=== PATIENT | male | born 1955 | race Caucasian/White ===

== ENCOUNTER → 2017-03-10 | Outpatient (REF) ==
[~2017-03-10] MED LIST: AMITRIPTYLINE H50 M1 PO; ATIVAN2 MG PO; CLEOCIN HC150 MG/CAP PO; CORGARD20 MG PO; DIFLUCAN 100MG100 MG PO; FENTANYL 50MCG TOP; JANUVIA25 MG PO; LAMICTAL200 MG PO; LANTUS100 U/ML SC; LANTUS100 U/ML SQ; NEURONTIN300 MG/CAP PO; NORCO 325 MG-101 TAB PO; NORCO 325 MG-51 TAB PO; NOVLOG; NOVOLOG FLEX100 U/ML SQ; PERCOCET 325 MG1 TAB PO; UNABLE; ZOCOR 40MG40 MG PO
[2017-03-10 15:47] LABS: THYROID STIMULATING HORMONE 1.27 uIU/mL (0.465-4.680)
[2017-03-10 17:26] LABS: PSA-TOTAL 0.28 ng/mL (0-4)
== END ==
LOC: ZLAB.WCH 14:52
PROVIDERS: Internal Medicine
DX: Z01.89 Encounter for other specified special examinations (principal)
CPT/HCPCS: G0103

== ENCOUNTER → 2017-04-08 | Outpatient (CLI) | payer MEDICARE | LOC: BHSO 10:26 | DX: F33.1 Major depressive disorder, recurrent, moderate (principal) ==

== ENCOUNTER 2017-05-02 12:54 | Day surgery (SDC) | payer MEDICARE ==
[~2017-05-02] VITALS: Ht 180.3 cm; Wt 109.8 kg
[~2017-05-02 12:54] MED LIST changes: -AMITRIPTYLINE H50 M1 PO; -ATIVAN2 MG PO; -LAMICTAL200 MG PO; -LANTUS100 U/ML SQ; -NEURONTIN300 MG/CAP PO; -NOVOLOG FLEX100 U/ML SQ; -ZOCOR 40MG40 MG PO
[2017-05-02 13:59] VITALS: BP 119/77; PULSE 98; TEMP 99
[2017-05-02] MEDS ORDERED: AMITRIPTYLINE H50 M1 PO (14:02)
[2017-05-02] MEDS ORDERED: ATIVAN2 MG PO (14:04)
[2017-05-02] MEDS ORDERED: LAMICTAL200 MG PO (14:05)
[2017-05-02] MEDS ORDERED: LANTUS100 U/ML SQ (14:07)
[2017-05-02] MEDS ORDERED: NEURONTIN300 MG/CAP PO (14:08)
[2017-05-02] MEDS ORDERED: NOVOLOG FLEX100 U/ML SQ (14:09)
[2017-05-02] MEDS ORDERED: ZOCOR 40MG40 MG PO (14:10)
[2017-05-02 14:48] VITALS: BP 107/72; PULSE 80; TEMP 98
[2017-05-02 15:00] VITALS: BP 99/65; PULSE 75
[2017-05-02 15:15] VITALS: BP 109/71; PULSE 82
[2017-05-02 17:52] VITALS: BP 112/77; PULSE 78
== END 2017-05-02 15:45 | disposition home or self-care (01) ==
LOC: SDCO 12:54
DX: I85.00 Esophageal varices without bleeding (principal); K29.31 Chronic superficial gastritis with bleeding; K74.60 Unspecified cirrhosis of liver; E10.9 Type 1 diabetes mellitus without complications; B18.2 Chronic viral hepatitis C; K76.6 Portal hypertension; K31.89 Other diseases of stomach and duodenum; E78.00 Pure hypercholesterolemia, unspecified; F32.9 Major depressive disorder, single episode, unspecified; F41.9 Anxiety disorder, unspecified; R53.1 Weakness
CPT/HCPCS: OP; J2250; J3010

== ENCOUNTER → 2017-06-07 | Outpatient (REF) ==
[~2017-06-07] MED LIST changes: +AMITRIPTYLINE H50 M1 PO; +ATIVAN2 MG PO; +LAMICTAL200 MG PO; +LANTUS100 U/ML SQ; +NEURONTIN300 MG/CAP PO; +NOVOLOG FLEX100 U/ML SQ; +ZOCOR 40MG40 MG PO
== END ==
LOC: ZLAB.WCH 18:37
DX: Z01.89 Encounter for other specified special examinations (principal)

== ENCOUNTER → 2017-08-10 | Outpatient (CLI) | payer MEDICARE | LOC: BHSO 12:54 | DX: F31.73 Bipolar disorder, in partial remission, most recent episode manic (principal) ==

== ENCOUNTER → 2017-10-17 | Outpatient (CLI) | payer MEDICARE | LOC: BHSO 10:43 | DX: F33.1 Major depressive disorder, recurrent, moderate (principal) ==

== ENCOUNTER → 2017-10-17 | Outpatient (REF) | LOC: ZLAB.WCH 18:15 | DX: Z01.89 Encounter for other specified special examinations (principal) ==

== ENCOUNTER → 2018-01-31 | Outpatient (CLI) | payer MEDICARE | LOC: MHCPAIN 09:38 | DX: G89.29 Other chronic pain (principal); M47.817 Spondylosis without myelopathy or radiculopathy, lumbosacral region; M54.16 Radiculopathy, lumbar region; M53.3 Sacrococcygeal disorders, not elsewhere classified | CPT/HCPCS: G0463 ==

== ENCOUNTER → 2018-03-29 | Outpatient (CLI) | payer MEDICARE | LOC: BHSO 08:42 | DX: F41.1 Generalized anxiety disorder (principal) | CPT/HCPCS: G0463 ==

== ENCOUNTER 2018-04-20 10:30 | Outpatient (RCR) | payer MEDICARE ==
[2018-04-27] MEDS ORDERED: VICTOZA6 MG/ML SQ (07:24)
[2018-04-27] MEDS ORDERED: CEPHALEXIN500 M1 PO (09:38)
== END 2018-05-23 | disposition home or self-care (01) ==
LOC: WSPT
DX: M47.27 Other spondylosis with radiculopathy, lumbosacral region (principal); M53.3 Sacrococcygeal disorders, not elsewhere classified
CPT/HCPCS: G8978-GP; G8979-GP

== ENCOUNTER 2018-04-27 06:58 | Emergency (ER) | payer MEDICARE ==
[~2018-04-27] VITALS: Ht 180.3 cm; Wt 118.2 kg
[2018-04-27] MEDS ORDERED: VICTOZA6 MG/ML SQ (07:24)
[2018-04-27 07:50] LABS: EOS # 0.1 (0.0-0.7); EOS % 0.9 % (0-4.0); GRAN # 2.6 (1.4-6.5); HEMATOCRIT 39.8 % (42.0-52.0); HEMOGLOBIN 14.2 g/dl (13.5-18.0); LYMPH # 2.3 (1.2-3.4); LYMPH % 42.5 % (20.0-51.0); MEAN CELL VOLUME 93 fl (80.0-100.0); MEAN CORPUSCULAR HEMOGLOBIN 33 pg (27.0-31.0); MEAN CORPUSCULAR HGB CONC 36 g/dl (33.0-37.0); MEAN PLATELET VOLUME 10.9 fl (7.4-10.4); MONO # 0.5 (0.1-0.6); MONO % 8.4 % (1.7-9.3); PLATELET COUNT 61 K/mm3 (130-400); RED BLOOD COUNT 4.29 M/mm3 (4.20-5.60); REDCELL DISTRIBUTION WIDTH-CV 13.3 % (11.5-14.5)
[2018-04-27 07:56] LABS: ALBUMIN 3.9 gm/dL (3.5-5.0); BILIRUBIN,TOTAL 0.9 mg/dL (0.0-1.0); CALCIUM 9.1 mg/dL (8.4-10.2); CREATININE, serum 0.81 mg/dL (0.66-1.25); POTASSIUM 3.5 mmol/L (3.4-5.0); TOTAL PROTEIN 7.2 gm/dL (6.4-8.2)
[2018-04-27] MEDS ORDERED: CEPHALEXIN500 M1 PO (09:38)
[2018-04-27 10:55] VITALS: BP 101/65; PULSE 92; TEMP 97.6
== END 2018-04-27 10:55 | disposition home or self-care (01) ==
LOC: COL.ER 06:58
PROVIDERS: Physician Assistant
DX: S22.41XA Multiple fractures of ribs, right side, initial encounter for closed fracture (principal); S40.811A Abrasion of right upper arm, initial encounter; L08.9 Local infection of the skin and subcutaneous tissue, unspecified; I10 Essential (primary) hypertension; E11.9 Type 2 diabetes mellitus without complications; M54.5 Low back pain; G89.29 Other chronic pain; Z79.4 Long term (current) use of insulin; F17.210 Nicotine dependence, cigarettes, uncomplicated; W18.09XA Striking against other object with subsequent fall, initial encounter
CPT/HCPCS: A9284; J2405; J3010; J7030; Q9967

== ENCOUNTER → 2018-05-05 | Outpatient (REF) ==
[~2018-05-05] MED LIST changes: +CEPHALEXIN500 M1 PO; +VICTOZA6 MG/ML SQ
== END ==
LOC: ZLAB.WCH 15:16
DX: Z01.89 Encounter for other specified special examinations (principal)

== ENCOUNTER → 2018-05-25 | Outpatient (CLI) | payer MEDICARE | LOC: BHSO 10:11 | DX: F33.42 Major depressive disorder, recurrent, in full remission (principal) | CPT/HCPCS: G0463 ==

== ENCOUNTER → 2018-09-05 | Outpatient (REF) | LOC: ZLAB.WCH 17:55 | DX: Z01.89 Encounter for other specified special examinations (principal) ==

== ENCOUNTER → 2018-09-11 | Outpatient (CLI) | payer MEDICARE | LOC: BHSO 10:44 | DX: F33.42 Major depressive disorder, recurrent, in full remission (principal) | CPT/HCPCS: G0463 ==

== ENCOUNTER 2018-09-23 16:20 | Emergency (ER) | payer MEDICARE ==
[~2018-09-23] VITALS: Ht 180.3 cm; Wt 111.8 kg
[2018-09-23 16:22] VITALS: TEMP 98.3
[2018-09-23] MEDS ORDERED: LIPITOR 40MG TA40 MG PO (16:36)
[2018-09-23] MEDS ORDERED: LEVEMIR FLEX100 U/ML SQ (16:38)
[2018-09-23] MEDS ORDERED: WELLBUTRIN XL150 MG PO (16:38)
[2018-09-23] MEDS ORDERED: CYMBALTA 60MG60 MG PO (16:39)
[2018-09-23] MEDS ORDERED: DOXYCYCLINE 10100 MG PO (17:09)
[2018-09-23 17:19] VITALS: BP 103/66; PULSE 74
== END 2018-09-23 17:37 | disposition home or self-care (01) ==
LOC: COL.ER 16:20
DX: S92.402A Displaced unspecified fracture of left great toe, initial encounter for closed fracture (principal); E11.9 Type 2 diabetes mellitus without complications; F17.210 Nicotine dependence, cigarettes, uncomplicated; E11.40 Type 2 diabetes mellitus with diabetic neuropathy, unspecified; Z79.4 Long term (current) use of insulin; W22.8XXA Striking against or struck by other objects, initial encounter; Y92.009 Unspecified place in unspecified non-institutional (private) residence as the place of occurrence of the external cause

== ENCOUNTER → 2018-12-20 | Outpatient (REF) ==
[~2018-12-20] MED LIST changes: +CYMBALTA 60MG60 MG PO; +DOXYCYCLINE 10100 MG PO; +LEVEMIR FLEX100 U/ML SQ; +LIPITOR 40MG TA40 MG PO; +WELLBUTRIN XL150 MG PO
== END ==
LOC: ZLAB.WCH 09:13
DX: Z01.89 Encounter for other specified special examinations (principal)

== ENCOUNTER → 2019-02-12 | Outpatient (CLI) | payer MEDICARE | LOC: MHCPAIN 10:48 | DX: G89.29 Other chronic pain (principal); M47.817 Spondylosis without myelopathy or radiculopathy, lumbosacral region; M54.16 Radiculopathy, lumbar region; M53.3 Sacrococcygeal disorders, not elsewhere classified | CPT/HCPCS: G0463 ==

== ENCOUNTER → 2019-02-22 | Outpatient (CLI) | payer MEDICARE | LOC: BHSO 09:28 | DX: F41.1 Generalized anxiety disorder (principal) | CPT/HCPCS: G0463 ==

== ENCOUNTER 2019-03-11 17:11 | Inpatient (IN) | payer MEDICARE ==
[~2019-03-11] VITALS: Ht 180.3 cm; Wt 97.1 kg
[2019-03-11 18:14] LABS: BASO % 0.2 % (0.0-2.0); EOS % 0.2 % (0-4.0); GRAN # 3.8 (1.4-6.5); GRAN % 71.9 % (42.2-75.2); HEMATOCRIT 47.1 % (42.0-52.0); LYMPH # 1.2 (1.2-3.4); MEAN CELL VOLUME 95 fl (80.0-100.0); MEAN CORPUSCULAR HEMOGLOBIN 32 pg (27.0-31.0); MEAN CORPUSCULAR HGB CONC 34 g/dl (33.0-37.0); MEAN PLATELET VOLUME 11.2 fl (7.4-10.4); MONO # 0.3 (0.1-0.6); MONO % 5.3 % (1.7-9.3); PLATELET COUNT 56 K/mm3 (130-400); RED BLOOD COUNT 4.97 M/mm3 (4.20-5.60)
[2019-03-11] MEDS ORDERED: NORCO 325 MG-7.1 TAB PO (18:28)
[2019-03-11] MEDS ORDERED: ATIVAN2 MG PO (18:29)
[2019-03-11] MEDS ORDERED: FENTANYL 25 MCG TD (18:29)
[2019-03-11 18:34] LABS: ALBUMIN 4.8 gm/dL (3.5-5.0); BILIRUBIN,TOTAL 0.8 mg/dL (0.0-1.0); C-REACTIVE PROTEIN 0.7 mg/dL (0.0-0.9); CALCIUM 10.3 mg/dL (8.4-10.2); CREATININE, serum 0.67 (0.66-1.25); POTASSIUM 4.4 mmol/L (3.4-5.0); TOTAL PROTEIN 8.4 gm/dL (6.4-8.2)
[2019-03-11 20:24] LABS: COLLECTION METHOD CLEAN CATCH
[2019-03-11 20:34] LABS: AMORPHOUS CRYSTAL Present /uL; PH 9 (5-8); SQUAMOUS EPITHELIAL 0-2 /hpf; URINE APPEARANCE Clear; URINE BACTERIA None Seen /hpf; URINE BILIRUBIN Negative (NEGATIVE); URINE BLOOD Negative (NEGATIVE); URINE COLOR Yellow; URINE GLUCOSE 1+ (NEGATIVE); URINE KETONE Negative (NEGATIVE); URINE LEUKOCYTE ESTERASE Negative (NEGATIVE); URINE NITRATE Negative (NEGATIVE); URINE PROTEIN(semi-quant) Negative (NEGATIVE); URINE RBC 0-2 /hpf; URINE UROBILINOGEN Negative (NEGATIVE)
[2019-03-11 21:16] LABS: INR 1.1 (0.8-3.0); PROTHROMBIN TIME 12.9 SECONDS (9.7-12.8)
[2019-03-11 23:05] VITALS: BP 137/73; PULSE 94
[2019-03-11 23:08] VITALS: BP 137/73; PULSE 94; TEMP 98.1
[2019-03-11 23:20] VITALS: BP 131/65; PULSE 91
[2019-03-11] MEDS ORDERED: VICTOZA6 MG/ML (23:28)
[2019-03-11] MEDS ORDERED: SEROQUEL 1100 MG/TAB PO (23:33)
[2019-03-11 23:35] VITALS: BP 116/74; PULSE 91
[2019-03-11 23:50] VITALS: BP 123/67; PULSE 95
[2019-03-12] VITALS (11 sets, daily range): BP systolic 71–138; BP diastolic 39–89; PULSE 72–94; TEMP 98.2–99.2
--- NOTE | 2019-03-12 03:28 | NUR ---
Patient blood pressure noted to be low (last reading 90/48 with a recheck of 84/51). Dr. Schroeder notified via phone and he stated, "Just keep an eye on it." Will continue to monitor blood pressures.
--- NOTE | 2019-03-12 05:01 | NUR ---
Dr. Torres notified of hypotension. He ordered 500ml bolus of NS, H&H, and BMP. Will continue to monitor blood pressure closely.
[2019-03-12 06:35] LABS: HEMATOCRIT 37.2 % (42.0-52.0)
[2019-03-12 06:38] LABS: HEMOGLOBIN 12.7 g/dl (13.5-18.0)
--- NOTE | 2019-03-12 06:58 | NUR ---
Report given to CRISTIANA Ro
[2019-03-12 07:01] LABS: CALCIUM 8.4 mg/dL (8.4-10.2); CREATININE, serum 0.72 (0.66-1.25); POTASSIUM 3.7 mmol/L (3.4-5.0)
--- NOTE | 2019-03-12 07:45 | NUR ---
TORB orders entered for Dr. Torres, Diet advanced, lab orders entered, hospitalist consulted and notified.
--- NOTE | 2019-03-12 08:10 | NUR ---
Patient in bed resting. Alert and oriented x 3. Shift assessment completed. States pain 8/10 to abdomen and back. Medications given per orders. Midline incision around umbilicus with edges well approximated. IV fluids infusing per orders to left AC IV. Deneis further needs at this time.
--- NOTE | 2019-03-12 11:19 | NUR ---
First visit from the agricultural labor camp manager. No needs right now.
[2019-03-12 12:25] LABS: BASO % 0.2 % (0.0-2.0); EOS % 0.5 % (0-4.0); GRAN # 3.3 (1.4-6.5); GRAN % 59.6 % (42.2-75.2); HEMATOCRIT 39.8 % (42.0-52.0); HEMOGLOBIN 13.4 g/dl (13.5-18.0); LYMPH # 1.7 (1.2-3.4); LYMPH % 31.2 % (20.0-51.0); MEAN CELL VOLUME 95 fl (80.0-100.0); MEAN CORPUSCULAR HEMOGLOBIN 32 pg (27.0-31.0); MEAN CORPUSCULAR HGB CONC 34 g/dl (33.0-37.0); MEAN PLATELET VOLUME 11.3 fl (7.4-10.4); MONO # 0.5 (0.1-0.6); MONO % 8.1 % (1.7-9.3); PLATELET COUNT 51 K/mm3 (130-400); RED BLOOD COUNT 4.21 M/mm3 (4.20-5.60); REDCELL DISTRIBUTION WIDTH-CV 14.3 % (11.5-14.5)
--- NOTE | 2019-03-12 14:51 | NUR ---
Patient called out to nurses station, states he is feeling sweaty and doesnt feel well. Rechecked bs, 164. Reassessed incision site, no redness or drainage. Will continue to monitor.
--- NOTE | 2019-03-12 16:28 | NUR ---
SW met with patient to discuss discharge planning. Patient lives independently at home alone. Patient's PCP is Dr Reinoso and he obtains prescriptions from [facility]. Patient reports no DME or home health services used. Patient does not have a DPOA but would like to complete those forms. SW provided DPOA form and will return when patient is ready to sign. No additional needs at this time.
--- NOTE | 2019-03-12 18:05 | NUR ---
Patient in bed resting. Family at bedside. Denies pain or further needs at this time. Will report off to shift mgr.
--- NOTE | 2019-03-12 20:45 | NUR ---
Pt. sitting up in bed at this time. Pt. is A&OX3, assessment complete. INT to lt. forearm patent. Pt. has midline incision to abd., edges well approximated. Pt. reports pain at a 5 on pain scale. Gave pain meds per orders. Pt. denies further needs, at this time.
[2019-03-13] VITALS (7 sets, daily range): BP systolic 109–131; BP diastolic 62–82; PULSE 69–83; TEMP 97.7–98.9
--- NOTE | 2019-03-13 06:14 | NUR ---
Pt. slept well through the night. Pt. remains A&OX3. INT to lt. forearm patent. Pt. reported pain at a 5 on pain scale, gave pain meds per orders. Pt. denies further needs, call light within reach.
[2019-03-13 07:23] LABS: BASO % 0.3 % (0.0-2.0); EOS % 0.8 % (0-4.0); GRAN # 1.7 (1.4-6.5); GRAN % 46.4 % (42.2-75.2); HEMATOCRIT 38.9 % (42.0-52.0); HEMOGLOBIN 13.1 g/dl (13.5-18.0); LYMPH # 1.6 (1.2-3.4); LYMPH % 42.9 % (20.0-51.0); MEAN CELL VOLUME 96 fl (80.0-100.0); MEAN CORPUSCULAR HEMOGLOBIN 32 pg (27.0-31.0); MEAN CORPUSCULAR HGB CONC 34 g/dl (33.0-37.0); MEAN PLATELET VOLUME 11.6 fl (7.4-10.4); MONO # 0.4 (0.1-0.6); MONO % 9.3 % (1.7-9.3); RED BLOOD COUNT 4.06 M/mm3 (4.20-5.60)
[2019-03-13 07:28] LABS: PLATELET COUNT 48 K/mm3 (130-400)
--- NOTE | 2019-03-13 07:35 | NUR ---
REPORT FROM PRACHI ZENDEJAS.
[2019-03-13 07:36] LABS: CREATININE, serum 0.75 (0.66-1.25); POTASSIUM 3.9 mmol/L (3.4-5.0)
--- NOTE | 2019-03-13 08:25 | NUR ---
PT UP IN BED BREAKFAST ORDERED PT DENIES NEEDS, NO N/V. PAIN WELL CONTROLLED.
--- NOTE | 2019-03-13 16:17 | NUR ---
PT OUT AMBULATING IN HALLS WITH SBA. STEADY GAIT, AMBULATED 100 + FEET.
--- NOTE | 2019-03-13 18:52 | NUR ---
report to Alisha ZENDEJAS.
--- NOTE | 2019-03-13 19:50 | NUR ---
Pt ambulated in halls with gait belt and cane. Gait is steady. Pt ambulated around surgical unit x2. Pt becomes dyspneic with exertion, but returns to baseline once returned to bed. Lungs clear to auscultation. BS+. Abdomen rounded, but soft. Midline abdominal incision open to air. Pt c/o pain 6/10 in abdomen after ambulation. Pt states he wants to wait until next dose of pain medication. No other needs noted at this time. Will continue to monitor.
--- NOTE | 2019-03-13 23:00 | NUR ---
Pt up to shower with help from Osvaldo TRIPLETT. Pt helped back to bed and given clean gown. Well tolerated by patient.
[2019-03-14 04:00] VITALS: BP 123/81; PULSE 76; TEMP 98.4
--- NOTE | 2019-03-14 06:39 | NUR ---
Pt resting in bed this AM. Slept periodically throughout the night with no distress and intermittent pain. Sliding scale insulin administered per orders. Pt c/o pain 6/10 in abdomen and back. PRN pain medication given. Pt is awake and alert.
[2019-03-14 08:30] VITALS: BP 97/65; PULSE 72
--- NOTE | 2019-03-14 08:40 | NUR ---
Patient in bed resting. Alert and oriented x 3. Shift assessment complete. Midline incision with edges well approximated. Denies pain at this time. Denies further needs at this time.
--- NOTE | 2019-03-14 10:15 | NUR ---
Patient states that he will not have a ride available to take him home until after 3pm. Denies further needs at this time.
[2019-03-14 12:07] VITALS: BP 125/76; PULSE 69; TEMP 98.5
--- NOTE | 2019-03-14 13:00 | NUR ---
Patient ambulated in alonso with stand by assist and cane, steady gait. Ambulated >100 feet.
--- NOTE | 2019-03-14 15:12 | NUR ---
Patient called shipping/receiving clerk desk and asked to speak to someone with social work. YAMILETH prado met with patient. Patient inquired about home health which he reported that L[facility] Musa, talked about briefly. YAMILETH prado explained to patient what home health consisted of. Patient states he wants to think about it and discuss things with his sister and PCP. Patient was primarily wanting someone to help with meals and other household duties. YAMILETH prado explained that insurance may cover PT/OT/nursing but other things would be private pray, which patient says he cannot do. Patient also requested information about financial assistance with the hospital. YAMILETH prado provided patient with Financial Counseling ([employer]) business card. No further needs at this time.
== END 2019-03-14 17:39 | disposition home or self-care (01) | DRG 337 ==
LOC: COL.ER 17:11 → SURG 20:50 → SDCO 20:51 → COL.ER 20:51 → SURG 20:51 → SDCO 03-12 08:59 → SURG 03-12 09:00
PROVIDERS: Emergency Medicine; Nurse Practitioner Family; ADMIT Surgery
PROC: 0WQF0ZZ Repair Abdominal Wall, Open Approach (ICD-10-PCS; principal; 2019-03-11 21:00)
PROC: 0DN80ZZ Release Small Intestine, Open Approach (ICD-10-PCS; 2019-03-11 21:00)
DX: K42.0 Umbilical hernia with obstruction, without gangrene (principal); E11.65 Type 2 diabetes mellitus with hyperglycemia; D69.6 Thrombocytopenia, unspecified; F10.21 Alcohol dependence, in remission; E78.5 Hyperlipidemia, unspecified; G89.29 Other chronic pain; I95.81 Postprocedural hypotension; F43.10 Post-traumatic stress disorder, unspecified; Z79.4 Long term (current) use of insulin; F17.210 Nicotine dependence, cigarettes, uncomplicated
CPT/HCPCS: OP; 99222; 99232-AI; J0690; J1170; J1815; J2060; J2405; J2704; J2710; J3010; J7030; J7040; J7120; Q9967

== ENCOUNTER → 2019-05-29 | Outpatient (CLI) | payer MEDICARE ==
[~2019-05-29] MED LIST changes: +FENTANYL 25 MCG TD; +NORCO 325 MG-7.1 TAB PO; +SEROQUEL 1100 MG/TAB PO; +VICTOZA6 MG/ML
== END ==
LOC: BHSO 09:47
DX: F43.10 Post-traumatic stress disorder, unspecified (principal)
CPT/HCPCS: G0463

== ENCOUNTER → 2019-07-31 | Outpatient (CLI) | payer MEDICARE | LOC: BHSO 13:39 | DX: F43.9 Reaction to severe stress, unspecified (principal) | CPT/HCPCS: G0463 ==

== ENCOUNTER → 2019-11-29 | Outpatient (CLI) | payer MEDICARE | LOC: BHSO 11:29 | DX: F43.10 Post-traumatic stress disorder, unspecified (principal) | CPT/HCPCS: G0463 ==

== ENCOUNTER → 2020-05-28 | Outpatient (CLI) | payer MEDICARE | LOC: BHSO 13:47 | DX: F43.10 Post-traumatic stress disorder, unspecified (principal) | CPT/HCPCS: G0463 ==

== ENCOUNTER 2020-07-20 12:51 | Emergency (ER) | payer MEDICARE ==
[~2020-07-20] VITALS: Ht 177.8 cm; Wt 106.8 kg
[2020-07-20 12:57] VITALS: TEMP 97.8
[2020-07-20 14:05] VITALS: BP 108/80; PULSE 94
== END 2020-07-20 14:05 | disposition home or self-care (01) ==
LOC: COL.ER 12:51
DX: E11.621 Type 2 diabetes mellitus with foot ulcer (principal); E11.40 Type 2 diabetes mellitus with diabetic neuropathy, unspecified; F17.210 Nicotine dependence, cigarettes, uncomplicated; Z79.4 Long term (current) use of insulin

== ENCOUNTER → 2020-08-13 | Outpatient (CLI) | payer MEDICARE | LOC: ZCOL.LAB 15:56 | DX: E13.621 Other specified diabetes mellitus with foot ulcer (principal); T14.8XXA Other injury of unspecified body region, initial encounter; L97.519 Non-pressure chronic ulcer of other part of right foot with unspecified severity ==

== ENCOUNTER 2021-02-25 11:35 | Inpatient (IN) | payer MEDICARE ==
[~2021-02-25] VITALS: Ht 180.3 cm; Wt 106.8 kg
[2021-02-25 13:09] LABS: BASO % 0.1 % (0.0-2.0); GRAN # 6.2 (1.4-6.5); HEMATOCRIT 45.4 % (42.0-52.0); HEMOGLOBIN 15.8 g/dl (13.5-18.0); LYMPH # 0.7 (1.2-3.4); LYMPH % 9.4 % (20.0-51.0); MEAN CELL VOLUME 93 fl (80.0-100.0); MEAN CORPUSCULAR HEMOGLOBIN 32 pg (27.0-31.0); MEAN CORPUSCULAR HGB CONC 35 g/dl (33.0-37.0); MEAN PLATELET VOLUME 10.7 fl (7.4-10.4); MONO # 0.4 (0.1-0.6); MONO % 5.2 % (1.7-9.3); PLATELET COUNT 58 K/mm3 (130-400); RED BLOOD COUNT 4.89 M/mm3 (4.20-5.60); REDCELL DISTRIBUTION WIDTH-CV 14.1 % (11.5-14.5)
[2021-02-25 13:10] LABS: ALANINE AMINOTRANSFERASE 74 U/L (4-49); ALBUMIN 4.4 gm/dL (3.5-5.0); ALKALINE PHOSPHATASE 149 U/L (50-136); ANION GAP 12 mmol/L (7-16); AST,SGOT 107 U/L (15-37); BILIRUBIN,TOTAL 2.3 mg/dL (0.0-1.0); BLOOD UREA NITROGEN 18 mg/dL (9-20); CALCIUM 9.2 mg/dL (8.4-10.2); CARBON DIOXIDE 21 mmol/L (22-30); CHLORIDE 99 mmol/L (98-107); CREATINE KINASE 514 U/L (55-170); CREATININE, serum 0.95 (0.66-1.25); SODIUM 132 mmol/L (137-145); TOTAL PROTEIN 7.6 gm/dL (6.4-8.2)
[2021-02-25 13:14] LABS: ARTERIAL BLD GAS O2 SATURATION 93.1 % (92-100); ARTERIAL BLD GAS TCO2 CT 21.6; ARTERIAL BLOOD GAS BASE EXCESS -2.9 (-2-2); ARTERIAL BLOOD GAS HCO3 20.6 meq/L (22-26); ARTERIAL BLOOD GAS PCO2 32.6 mmHg (35-45); ARTERIAL BLOOD GAS PO2 62.7 mmHg (80-100); ARTERIAL BLOOD GAS pH 7.42 (7.35-7.45)
[2021-02-25 13:23] LABS: GLUCOSE 420 mg/dL (74-106); TROPONIN-I < 0.012 ng/mL (0.000-0.035)
[2021-02-25] MEDS ORDERED: ELAVIL150 MG PO (17:05)
[2021-02-25 17:20] LABS: COLLECTION METHOD CLEAN CATCH
[2021-02-25 17:32] LABS: PH 5 (5-8); SQUAMOUS EPITHELIAL None Seen /hpf; URINE APPEARANCE Clear; URINE BACTERIA None Seen /hpf; URINE BILIRUBIN Negative (NEGATIVE); URINE BLOOD 1+ (NEGATIVE); URINE COLOR Yellow; URINE GLUCOSE 3+ (NEGATIVE); URINE KETONE 1+ (NEGATIVE); URINE LEUKOCYTE ESTERASE Negative (NEGATIVE); URINE NITRATE Negative (NEGATIVE); URINE PROTEIN(semi-quant) Negative (NEGATIVE); URINE RBC 0-2 /hpf; URINE UROBILINOGEN Negative (NEGATIVE)
[2021-02-25 17:57] LABS: TRICYCLIC ANTIDEPRESS URINE POSITIVE
--- NOTE | 2021-02-25 18:31 | NUR ---
Vancomycin Initial Dosing Pharmacy Note Ordering provider: Calvin Meza MD Indication/duration: PNA Relevant comorbidities: DM LABS: WBC 7.3, SCR 0.95, CRCL 85 Loading dose: 2 grams (GIVEN IN ED) Maintenance dose: 1.25 grams every 12 hours Trough goal: 15-20 ug/mL. TROUGH 02/27 @1730
--- NOTE | 2021-02-25 23:03 | NUR ---
1999- PT ADMIT TO 315 PER CART. VANCO AND NS RUNNING TO LT FA. ASSESSMENT AND VITALS OBTAINED. ORDERS REVIEWED. POC DISCUSSED W PT. IS ALERT AND OX4. DOESNT REMEMBER THIS MORNING. STATES HE GOT HIS 2ND COVID SHOT TUESDAY AND HAS NOT FELT RIGHT SINCE. BS TREATED IN ER. C/O PAIN TO BACK, STATES BROKE BACK ALONG TIME AGO AND IS ON MEDS FOR THIS RATING 06/23. PM MEDS/PRN MEDS REVIEWED. SCD APPLIED. NS TO LFA AT 125ML/HR. CALL LIGHT WI REACH. POC DISCUSSED.
[2021-02-25 23:55] VITALS: BP 97/53; PULSE 91; TEMP 98.1
[2021-02-26 03:41] VITALS: BP 95/57; PULSE 84; TEMP 98
[2021-02-26 07:18] LABS: EOS % 0.8 % (0-4.0); GRAN # 2.1 (1.4-6.5); GRAN % 53.9 % (42.2-75.2); LYMPH # 1.4 (1.2-3.4); MEAN CELL VOLUME 97 fl (80.0-100.0); MEAN CORPUSCULAR HGB CONC 34 g/dl (33.0-37.0); MEAN PLATELET VOLUME 11.8 fl (7.4-10.4); MONO # 0.4 (0.1-0.6); RED BLOOD COUNT 3.72 M/mm3 (4.20-5.60); REDCELL DISTRIBUTION WIDTH-CV 14.5 % (11.5-14.5)
[2021-02-26 07:22] LABS: HEMATOCRIT 35.9 % (42.0-52.0); HEMOGLOBIN 12.2 g/dl (13.5-18.0); MEAN CORPUSCULAR HEMOGLOBIN 33 pg (27.0-31.0)
[2021-02-26 07:23] LABS: PLATELET COUNT 36 K/mm3 (130-400)
[2021-02-26 07:33] LABS: ALBUMIN 3.2 gm/dL (3.5-5.0); BILIRUBIN,TOTAL 0.8 mg/dL (0.0-1.0); CALCIUM 8.1 mg/dL (8.4-10.2); CREATININE, serum 0.64 (0.66-1.25); POTASSIUM 3.6 mmol/L (3.4-5.0); TOTAL PROTEIN 5.7 gm/dL (6.4-8.2)
[2021-02-26 07:47] VITALS: BP 107/63; PULSE 83; TEMP 97.5
--- NOTE | 2021-02-26 08:14 | NUR ---
Pt assessment complete. Pt is sitting in bed eating breakfast, he is A/O x4. He's asking about his fentanyl patch as well as Lorazepam, discussed POC with pt. He reports back pain 5/10, PRN pain medication administered. No N/V. IVF infusing without issues. SCD's in place. Call light and bed alarm in place.
--- NOTE | 2021-02-26 10:28 | NUR ---
SW met with the patient to discuss discharge plan. The patient lives alone in [place]. He states that his mother, Heidi (ph#[phone]), and sister, Jacinta (ph#[phone]), also live in [place]. He reports independence with ADLs and has a cane and walker. The patient's PCP is Dr. Billy Reinoso and he receives his medications from [facility]. He reports occasional difficulties affording his meds at the start of the year, but afterwards he does not have any. The patient does not have a DPOA-HC and he was not interested in completing one while here. The patient states that he is not , does not have any children. His father has . His next of kin is his mother, Heidi. SW informed him of this and how she would be his decision maker. The patient reports that he would rather have his sister. SW encouraged the patient to complete a DPOA-HC then. The patient was still not interested in completing one while here. The patient plans to return home upon discharge. SW to follow as needed. *Discharge plan: home*
[2021-02-26 12:09] VITALS: BP 106/53; PULSE 78; TEMP 98.1
--- NOTE | 2021-02-26 12:40 | NUR ---
First visit from the pharmaceutical physician. No needs right now.
[2021-02-26 16:40] VITALS: BP 125/65; PULSE 81; TEMP 98.1
--- NOTE | 2021-02-26 17:52 | NUR ---
Pt rested in bed most of the day. Up to restroom with SBA. Pt remained A/O through the day. Did report concern over pain medications being reduced as he feels that he and his PCP have already been decreasing this. POC discussed with patient. No needs at this time. Call light within reach.
[2021-02-26 18:59] VITALS: BP 111/65; PULSE 89; TEMP 98.3
--- NOTE | 2021-02-26 23:06 | NUR ---
2100- ASSESSMENT COMPLETE. PAIN TOLERABLE RATING 6/10 CHRONIC BACK PAIN. HAVING SOME ANIEXY TONIGHT, ATIVAN GIVEN. ALERT AND 0X3. IV TO LFA FLUSHED FLUIDS RUNNING. POC DISCUSSED. PT UP TO BR W STAND BY ASST. NEEDS MET.
[2021-02-27 00:26] VITALS: BP 121/63; PULSE 79; TEMP 98
[2021-02-27 04:21] VITALS: BP 124/68; PULSE 86; TEMP 98.3
--- NOTE | 2021-02-27 05:46 | NUR ---
RESTED THROUGH THE NIGHT WO INCIDENT. NEEDS MET. SPUTUM SENT TO LAB OVERNIGHT.
[2021-02-27 07:13] LABS: EOS % 0.7 % (0-4.0); GRAN # 1.5 (1.4-6.5); GRAN % 53.9 % (42.2-75.2); HEMOGLOBIN 11.7 g/dl (13.5-18.0); LYMPH % 37.4 % (20.0-51.0); MEAN CELL VOLUME 96 fl (80.0-100.0); MEAN CORPUSCULAR HEMOGLOBIN 33 pg (27.0-31.0); MEAN CORPUSCULAR HGB CONC 34 g/dl (33.0-37.0); MONO # 0.2 (0.1-0.6); MONO % 7.6 % (1.7-9.3); REDCELL DISTRIBUTION WIDTH-CV 14.3 % (11.5-14.5)
--- NOTE | 2021-02-27 07:18 | NUR ---
Pt assessment complete. Pt is resting with his eyes closed upon entry, he arouses to voice and is oriented. He reports he did not sleep, requesting PRN Ativan - administered. Pain controlled at this time. No N/V. Pt denies SOB, but has a productive cough. SCD's in place to BLE. No needs at this time. Call light within reach.
[2021-02-27 07:24] LABS: ALBUMIN 3.1 gm/dL (3.5-5.0); BILIRUBIN,TOTAL 0.5 mg/dL (0.0-1.0); CALCIUM 8.2 mg/dL (8.4-10.2); CREATININE, serum 0.69 (0.66-1.25); MAGNESIUM 2.2 mg/dL (1.6-2.3); POTASSIUM 3.5 mmol/L (3.4-5.0); TOTAL PROTEIN 5.7 gm/dL (6.4-8.2)
[2021-02-27 07:25] LABS: INR 1.2 (0.8-3.0); PROTHROMBIN TIME 13.7 SECONDS (9.7-12.8)
[2021-02-27 07:31] LABS: HEMATOCRIT 34.7 % (42.0-52.0)
[2021-02-27 07:33] LABS: PLATELET COUNT 28 K/mm3 (130-400)
[2021-02-27 07:46] VITALS: BP 136/58; PULSE 87; TEMP 97.5
--- NOTE | 2021-02-27 10:36 | NUR ---
Pt refusing to work with PT as he is "in too much pain". PRN pain medication taken to patient, resting in bed with eyes closed appears to be comfortable. Arouses to voice he states the "pain is starting to get up there, I've been working with my doctor for 15 years to manage it and now it's all being erased".
[2021-02-27 12:01] VITALS: BP 114/70; PULSE 92; TEMP 98.3
[2021-02-27 16:37] VITALS: BP 152/71; PULSE 78; TEMP 98.3
--- NOTE | 2021-02-27 18:13 | NUR ---
Pt had uneventful day. Rested in bed through most of the day, up to the restroom with steady gait. Remained A/O. POC discussed with patient who verbalized understanding. No needs at this time.
[2021-02-27 20:27] VITALS: BP 150/73; PULSE 108; TEMP 98.2
[2021-02-28 01:32] VITALS: BP 121/65; PULSE 75; TEMP 97.4
[2021-02-28 04:16] VITALS: BP 136/57; PULSE 73; TEMP 98.3
--- NOTE | 2021-02-28 05:37 | NUR ---
PATIENT HAD RESTFUL NIGHT, NOTING HE FELL ASLEEP AFTER MIDNIGHT. DID NOT WAKE WITH ANY ROOM CHECKS COMPLETED. N/C AT THIS TIME.
[2021-02-28 06:48] LABS: ALBUMIN 3.4 gm/dL (3.5-5.0); BILIRUBIN,TOTAL 0.6 mg/dL (0.0-1.0); CALCIUM 8.8 mg/dL (8.4-10.2); CREATININE, serum 0.68 (0.66-1.25); POTASSIUM 3.5 mmol/L (3.4-5.0); TOTAL PROTEIN 6.1 gm/dL (6.4-8.2)
[2021-02-28 06:52] LABS: EOS % 1.2 % (0-4.0); GRAN # 1.2 (1.4-6.5); GRAN % 48.6 % (42.2-75.2); LYMPH # 1.1 (1.2-3.4); LYMPH % 41.2 % (20.0-51.0); MEAN CELL VOLUME 95 fl (80.0-100.0); MEAN CORPUSCULAR HEMOGLOBIN 32 pg (27.0-31.0); MEAN CORPUSCULAR HGB CONC 34 g/dl (33.0-37.0); MEAN PLATELET VOLUME 9.3 fl (7.4-10.4); MONO # 0.2 (0.1-0.6); MONO % 8.6 % (1.7-9.3); RED BLOOD COUNT 3.72 M/mm3 (4.20-5.60)
[2021-02-28 07:22] LABS: HEMATOCRIT 35.3 % (42.0-52.0)
[2021-02-28 07:24] LABS: PLATELET COUNT 38 K/mm3 (130-400)
[2021-02-28 07:31] VITALS: BP 127/75; PULSE 92; TEMP 98.3
--- NOTE | 2021-02-28 08:00 | NUR ---
Patient laying in bed watching TV. A&Ox4. VSS. IV CDI. Reporting pain in back and neck, pain medication requested. Patient is wanting to go home today. Waiting on the doctor to do rounds. Call light within reach
[2021-02-28] MEDS ORDERED: OMNICEF 300MG300 MG PO (08:37)
[2021-02-28 11:33] VITALS: BP 139/79; PULSE 89
--- NOTE | 2021-02-28 13:14 | NUR ---
Discharge paperwork reviewed with the patient. Patient verbalized an understanding to follow doctors orders. IV removed, tip intact, bandaid applied. No further needs expressed from the patient. Waiting on sister for a ride. Call light within reach
--- NOTE | 2021-02-28 13:20 | NUR ---
Patient transfered by wheelchair by nursing staff to the ER entrance. Personal belongings with the patient.
== END 2021-02-28 13:25 | disposition home or self-care (01) | DRG 871 ==
LOC: COL.ER 11:35 → MEDICAL 16:51
PROVIDERS: Family Medicine; Physician Assistant; ADMIT Internal Medicine
DX: A41.9 Sepsis, unspecified organism (principal); J18.9 Pneumonia, unspecified organism; J96.01 Acute respiratory failure with hypoxia; D61.818 Other pancytopenia; E87.1 Hypo-osmolality and hyponatremia; G93.40 Encephalopathy, unspecified; K76.6 Portal hypertension; E11.65 Type 2 diabetes mellitus with hyperglycemia; G89.29 Other chronic pain; F43.11 Post-traumatic stress disorder, acute; K70.30 Alcoholic cirrhosis of liver without ascites; Z20.822 Contact with and (suspected) exposure to COVID-19; R16.1 Splenomegaly, not elsewhere classified; F43.10 Post-traumatic stress disorder, unspecified
CPT/HCPCS: 87522; 99223-AI; 99233-AI; 99239; J0696; J1815; J2310; J3370; J7030; J7040; J7050; Q9967

== ENCOUNTER → 2021-03-10 | Outpatient (REF) ==
[~2021-03-10] MED LIST changes: +ELAVIL150 MG PO; +OMNICEF 300MG300 MG PO
== END ==
LOC: ZLAB.WCH 15:51
DX: Z01.89 Encounter for other specified special examinations (principal)

== ENCOUNTER 2021-05-29 07:57 | Day surgery (SDC) | payer MEDICARE ==
[~2021-05-29] VITALS: Ht 177.8 cm; Wt 101.9 kg
[2021-05-29] MEDS ORDERED: ELAVIL150 MG PO (08:44)
[2021-05-29 09:00] VITALS: BP 136/92; PULSE 88
--- NOTE | 2021-05-29 09:00 | NUR ---
Pt voices he has suicidal thoughts daily. Pt states "I hurt so bad, I just don't want to live." Pt has not seen his psycologist for 3 months stating "She wouldn't give me anything that would make me sleep." Pt does not currently see a counsler. Pt is only under the direction of his PCP. Pt states "I have lots of plans, but I don't act on them." Pt talks about by potassium chloride injections and states "I don't even know where to get it." Will continue to monitor. Sister in room with pt.
[2021-05-29 09:10] VITALS: BP 136/92; PULSE 88; TEMP 97.6
[2021-05-29 09:15] VITALS: BP 136/92; PULSE 88
--- NOTE | 2021-05-29 10:45 | NUR ---
Pt seen by medical social worker. Plans to have [facility] Eval. notified. He would like pt to go to the ER upon discharge. Pt requests his sister/family not know of the suicidal thoughts. Pt to go to ENDO shortly for his procedure. Call light within reach.
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
[2021-05-29 11:35] VITALS: BP 126/84; PULSE 80; PULSE 81; TEMP 98.2
--- NOTE | 2021-05-29 11:35 | NUR ---
Pt to GI bay 8 via cart from ENDO. Pt sleeping. Respirations even and unlabored. Pt awakens easily via verbal stimuli. Pt denies pain or nausea. Quickly falls back to sleep. Side rails up x2. Call light within reach.
--- NOTE | 2021-05-29 11:45 | NUR ---
Pt sleeping. Respirations even and unlabored. Call light within reach.
[2021-05-29 11:50] VITALS: BP 131/77; PULSE 82
--- NOTE | 2021-05-29 12:00 | NUR ---
Pt continues to rest. Taking sips of water without difficulties. Call light within reach.
[2021-05-29 12:05] VITALS: BP 135/85; PULSE 81
--- NOTE | 2021-05-29 12:10 | NUR ---
Discharge instructions reviewed. Pt voices understanding. IV site discontinued with all parts intact. Courtesy report given to ER nurse. Questions answered and invited. Instructed to bring pt to ER registration and they will work pt in. dietary services director is aware pt will in ER upon discharge from ENDO.
--- NOTE | 2021-05-29 12:20 | NUR ---
Pt taken to ER registration via wheel chair. Pt assisted into waiting room chair. Belongings with pt.
== END 2021-05-29 12:20 ==
LOC: SDCO 07:57
DX: K76.6 Portal hypertension (principal); I85.10 Secondary esophageal varices without bleeding; K70.30 Alcoholic cirrhosis of liver without ascites; E11.40 Type 2 diabetes mellitus with diabetic neuropathy, unspecified; F10.11 Alcohol abuse, in remission; F32.9 Major depressive disorder, single episode, unspecified; F41.9 Anxiety disorder, unspecified; K75.9 Inflammatory liver disease, unspecified; Z20.822 Contact with and (suspected) exposure to COVID-19; F43.10 Post-traumatic stress disorder, unspecified; E78.5 Hyperlipidemia, unspecified; G89.29 Other chronic pain; R16.1 Splenomegaly, not elsewhere classified; Z79.4 Long term (current) use of insulin; Z87.891 Personal history of nicotine dependence; Z79.891 Long term (current) use of opiate analgesic
CPT/HCPCS: J2704; J7030; J7120

== ENCOUNTER 2021-05-29 12:25 | Emergency (ER) | payer MEDICARE ==
[~2021-05-29] VITALS: Ht 177.8 cm; Wt 102.3 kg
[2021-05-29 12:35] VITALS: TEMP 97.8
[2021-05-29 13:00] VITALS: BP 97/63; PULSE 79
[2021-05-29 13:12] LABS: COLLECTION METHOD CLEAN CATCH
[2021-05-29 13:24] LABS: MUCOUS Present /lpf; PH 5 (5-8); URINE APPEARANCE Clear; URINE BACTERIA None Seen /hpf; URINE BILIRUBIN Negative (NEGATIVE); URINE BLOOD Negative (NEGATIVE); URINE COLOR Yellow; URINE GLUCOSE 3+ (NEGATIVE); URINE KETONE Trace (NEGATIVE); URINE LEUKOCYTE ESTERASE Negative (NEGATIVE); URINE NITRATE Negative (NEGATIVE); URINE PROTEIN(semi-quant) Negative (NEGATIVE); URINE RBC 0-2 /hpf; URINE UROBILINOGEN Negative (NEGATIVE)
[2021-05-29 13:26] LABS: SQUAMOUS EPITHELIAL 0-2 /hpf
[2021-05-29 13:32] LABS: TRICYCLIC ANTIDEPRESS URINE POSITIVE
[2021-05-29 13:42] LABS: EOS % 0.7 % (0-4.0); GRAN # 2.5 (1.4-6.5); GRAN % 59.6 % (42.2-75.2); HEMATOCRIT 39.7 % (42.0-52.0); HEMOGLOBIN 13.5 g/dl (13.5-18.0); LYMPH # 1.3 (1.2-3.4); LYMPH % 30.6 % (20.0-51.0); MEAN CELL VOLUME 94 fl (80.0-100.0); MEAN CORPUSCULAR HEMOGLOBIN 32 pg (27.0-31.0); MEAN CORPUSCULAR HGB CONC 34 g/dl (33.0-37.0); MEAN PLATELET VOLUME 10.4 fl (7.4-10.4); MONO # 0.4 (0.1-0.6); MONO % 8.9 % (1.7-9.3); RED BLOOD COUNT 4.21 M/mm3 (4.20-5.60); REDCELL DISTRIBUTION WIDTH-CV 14.4 % (11.5-14.5)
[2021-05-29 13:47] LABS: PLATELET COUNT 45 K/mm3 (130-400)
[2021-05-29 14:00] LABS: ALANINE AMINOTRANSFERASE 26 U/L (4-49); ALKALINE PHOSPHATASE 116 U/L (50-136); ANION GAP 7 mmol/L (7-16); AST,SGOT 33 U/L (15-37); BILIRUBIN,TOTAL 1.2 mg/dL (0.0-1.0); BLOOD UREA NITROGEN 10 mg/dL (9-20); CALCIUM 8.8 mg/dL (8.4-10.2); CARBON DIOXIDE 27 mmol/L (22-30); CHLORIDE 105 mmol/L (98-107); CREATININE, serum 0.71 (0.66-1.25); GLUCOSE 141 mg/dL (74-106); POTASSIUM 3.6 mmol/L (3.4-5.0); SODIUM 138 mmol/L (137-145); TOTAL PROTEIN 7.1 gm/dL (6.4-8.2)
[2021-05-29 14:03] LABS: ACETAMINOPHEN < 10 ug/mL (10-30); ALCOHOL(ethanol),MEDICAL < 10 mg/dL; SALICYLATE < 1.0 mg/dL
== END 2021-05-29 15:17 | disposition left against medical advice (07) ==
LOC: COL.ER 12:25
PROVIDERS: Nurse Practitioner
DX: R45.851 Suicidal ideations (principal); S00.81XA Abrasion of other part of head, initial encounter; S00.31XA Abrasion of nose, initial encounter; D69.6 Thrombocytopenia, unspecified; F32.9 Major depressive disorder, single episode, unspecified; E11.9 Type 2 diabetes mellitus without complications; Z87.891 Personal history of nicotine dependence; Z79.4 Long term (current) use of insulin; Z79.899 Other long term (current) drug therapy

== ENCOUNTER 2021-05-31 12:58 | Observation (INO) | payer MEDICARE ==
[~2021-05-31] VITALS: Ht 177.8 cm; Wt 100.0 kg
[2021-05-31 13:28] LABS: GRAN # 4.6 (1.4-6.5); HEMOGLOBIN 13.1 g/dl (13.5-18.0); LYMPH # 1.1 (1.2-3.4); LYMPH % 16.7 % (20.0-51.0); MEAN CELL VOLUME 93 fl (80.0-100.0); MEAN CORPUSCULAR HEMOGLOBIN 32 pg (27.0-31.0); MEAN CORPUSCULAR HGB CONC 35 g/dl (33.0-37.0); MEAN PLATELET VOLUME 10.5 fl (7.4-10.4); MONO # 0.6 (0.1-0.6); PLATELET COUNT 62 K/mm3 (130-400); RED BLOOD COUNT 4.07 M/mm3 (4.20-5.60); REDCELL DISTRIBUTION WIDTH-CV 14.8 % (11.5-14.5)
[2021-05-31 13:36] LABS: ALANINE AMINOTRANSFERASE 48 U/L (4-49); ALKALINE PHOSPHATASE 115 U/L (50-136); ANION GAP 8 mmol/L (7-16); AST,SGOT 211 U/L (15-37); BILIRUBIN,TOTAL 2.1 mg/dL (0.0-1.0); BLOOD UREA NITROGEN 21 mg/dL (9-20); CALCIUM 8.9 mg/dL (8.4-10.2); CARBON DIOXIDE 24 mmol/L (22-30); CHLORIDE 106 mmol/L (98-107); CREATININE, serum 1.21 (0.66-1.25); GLUCOSE 169 mg/dL (74-106); POTASSIUM 4.6 mmol/L (3.4-5.0); SODIUM 138 mmol/L (137-145); TOTAL PROTEIN 7.1 gm/dL (6.4-8.2)
[2021-05-31 13:37] LABS: ALCOHOL(ethanol),MEDICAL < 10 mg/dL
[2021-05-31 15:26] LABS: COLLECTION METHOD CATHETER
[2021-05-31 16:13] LABS: MUCOUS Present /lpf; PH 5 (5-8); SQUAMOUS EPITHELIAL None Seen /hpf; URINE APPEARANCE Hazy; URINE BACTERIA None Seen /hpf; URINE BILIRUBIN Negative (NEGATIVE); URINE BLOOD 3+ (NEGATIVE); URINE COLOR Amber; URINE GLUCOSE 2+ (NEGATIVE); URINE KETONE 1+ (NEGATIVE); URINE LEUKOCYTE ESTERASE Negative (NEGATIVE); URINE NITRATE Negative (NEGATIVE); URINE PROTEIN(semi-quant) 1+ (NEGATIVE); URINE RBC 0-2 /hpf; URINE UROBILINOGEN Negative (NEGATIVE)
[2021-05-31 16:14] LABS: TRICYCLIC ANTIDEPRESS URINE POSITIVE
--- NOTE | 2021-05-31 19:46 | NUR ---
PT STATES THAT HE LIVES ALONE IN HIS APARTMENT. HE HAS MOMENTS OF CONFUSION INTERMIXED WITH ORIENTED CONVERSATIONS. HE STATES THAT HE LOSES TRACK OF DAYS AT HOME, HE STATES THAT HE FELL DOWN SOME STEPS IN [facility]. THE CONVERSATION IS VERY CONFUSED. THE PATIENT IS ALERT AND ORIENTED X1 DOES NOT KNOW YEAR, MONTH OR DAY. PT STATES MAGALI IS THE PRESIDENT. ASSESMENT COMPLETED. PT CURRENTLY STABLE. WILL CONTINUE TO MONITOR.
[2021-05-31 20:57] VITALS: BP 87/58; PULSE 60; TEMP 98
[2021-05-31 23:08] VITALS: BP 110/36; PULSE 98; TEMP 98
[2021-06-01 03:25] VITALS: BP 95/59; PULSE 90; TEMP 98.5
[2021-06-01 07:28] LABS: EOS % 0.5 % (0-4.0); GRAN # 2.6 (1.4-6.5); GRAN % 58.2 % (42.2-75.2); HEMOGLOBIN 11.6 g/dl (13.5-18.0); LYMPH # 1.4 (1.2-3.4); LYMPH % 30.9 % (20.0-51.0); MEAN CELL VOLUME 94 fl (80.0-100.0); MEAN CORPUSCULAR HEMOGLOBIN 32 pg (27.0-31.0); MEAN CORPUSCULAR HGB CONC 34 g/dl (33.0-37.0); MEAN PLATELET VOLUME 10.2 fl (7.4-10.4); MONO # 0.5 (0.1-0.6); MONO % 10.2 % (1.7-9.3); PLATELET COUNT 53 K/mm3 (130-400); RED BLOOD COUNT 3.59 M/mm3 (4.20-5.60)
[2021-06-01 07:30] LABS: CALCIUM 8.2 mg/dL (8.4-10.2); CREATININE, serum 0.8 (0.66-1.25); HEMATOCRIT 33.9 % (42.0-52.0); POTASSIUM 3.4 mmol/L (3.4-5.0)
[2021-06-01 09:00] VITALS: BP 90/67; PULSE 96; TEMP 97.7
--- NOTE | 2021-06-01 10:42 | NUR ---
SW met with the patient to discuss discharge plan. The patient lives alone in [place]. He reports independence with ADLs and has a walking stick, walker, and wheelchair. The patient's PCP is Dr. Billy Reinoso and he receives his medications from [facility]. He reports no difficulties obtaining his meds. The patient does not have a DPOA-HC, but he was interested in obtaining a form. YAMILETH provided. He states that he needs some time to think about who he would want to designate. The patient states that he is not and does not have any children. His mother, Heidi, is his next of kin. She lives in [place]. He did not have her phone number. His sister, Jacinta (ph#[phone]), also lives in [place]. The patient states he is unsure if the above phone number is his sisters. He did not have his phone on him and does not have her number memorized. He reports that he does not want his family contacted while he is here. He states that his mother is older and he does not want to get her worked up. The patient states that he has been sober from alcohol for 21 years. He plans on returning home upon discharge. He states that he will need transport home. PT/OT have been ordered. SW to continue to follow. *Discharge plan: home, awaiting therapy's recs*
[2021-06-01 12:00] VITALS: BP 118/59; PULSE 92; TEMP 98.7
--- NOTE | 2021-06-01 12:45 | NUR ---
Initial visit; Patient thanked Commissary Helper for looking in on him and offering prayer and God's blessings.
--- NOTE | 2021-06-01 12:51 | NUR ---
The patient's sister, Jacinta, arrived to the hospital. The patient's RN notified YAMILETH that the patient would like to discuss the DPOA-HC some more. YAMILETH met with the patient and his sister, Jacinta. The patient reports that he is ready to fill out and sign the DPOA-HC. Her verbalized that he wants to designate his sister, Jacinta (ph#[phone]), as his DPOA-HC and then his nephew, Saulo Ellison (ph#[phone]), as the alternate. YAMILETH and the patient's RN, Corwin, witnessed the patient's signature. YAMILETH provided the patient with the original and some copies. YAMILETH placed a copy in the patient's chart.
[2021-06-01 16:21] VITALS: BP 110/65; PULSE 78; TEMP 98.5
[2021-06-01 20:31] VITALS: BP 95/66; PULSE 77; TEMP 98.3
--- NOTE | 2021-06-01 21:02 | NUR ---
PATIENT IS CALM IN THE ROOM.ALERT AND ORIENTED ON ROOM AIR.REPORTS OF BACKPAIN.MEDS GIVEN PER MAR.NO OTHER NEEDS AT THIS TIME.
[2021-06-01 23:43] VITALS: BP 101/62; PULSE 78; TEMP 97.5
[2021-06-02 04:08] VITALS: BP 99/58; PULSE 74; TEMP 97.6
--- NOTE | 2021-06-02 06:00 | NUR ---
PATIENT HAD A CALM NIGHT.DENIES PAIN.SAFETY MEASURES IN PLACE.NO OTHER NEEDS AT THIS TIME.
[2021-06-02 07:30] LABS: GRAN # 1.5 (1.4-6.5); GRAN % 52.3 % (42.2-75.2); HEMOGLOBIN 11.1 g/dl (13.5-18.0); LYMPH % 35.3 % (20.0-51.0); MEAN CELL VOLUME 95 fl (80.0-100.0); MEAN CORPUSCULAR HEMOGLOBIN 32 pg (27.0-31.0); MEAN CORPUSCULAR HGB CONC 34 g/dl (33.0-37.0); MEAN PLATELET VOLUME 11.3 fl (7.4-10.4); MONO # 0.3 (0.1-0.6); MONO % 11.1 % (1.7-9.3); RED BLOOD COUNT 3.47 M/mm3 (4.20-5.60); REDCELL DISTRIBUTION WIDTH-CV 14.7 % (11.5-14.5)
[2021-06-02 07:31] LABS: HEMATOCRIT 32.9 % (42.0-52.0)
[2021-06-02 07:32] LABS: PLATELET COUNT 48 K/mm3 (130-400)
[2021-06-02 07:36] VITALS: BP 96/47; PULSE 79; TEMP 97.5
[2021-06-02 07:43] LABS: ALBUMIN 3.2 gm/dL (3.5-5.0); CALCIUM 8.5 mg/dL (8.4-10.2); CREATININE, serum 0.65 (0.66-1.25); POTASSIUM 3.4 mmol/L (3.4-5.0)
[2021-06-02] MEDS ORDERED: NORCO 325 MG-51 TAB PO ×2 (08:44→09:02)
--- NOTE | 2021-06-02 09:01 | NUR ---
The patient is to discharge back home today, 06/02. PT recommended a FWW. SW followed up with the patient about this. The patient reports that he already has a rollator walker. He had no other concerns for SW. SW updated his sister, Jacinta. Jacinta reports that she will transport the patient home later today. No additional needs at this time.
--- NOTE | 2021-06-02 09:52 | NUR ---
Pt awake and alert upon entry to room, no C/O pain at this time. shift assessments complete, left Pt call light in reach, bed in lowest position.
[2021-06-02 12:24] VITALS: BP 114/76; PULSE 72; TEMP 97.7
--- NOTE | 2021-06-02 15:20 | NUR ---
Pt discharged to home, discussed discharge packet with Pt. Escorted Pt to entrance via WC, assisted into vehicle, Pt left with familt via private transportation.
== END 2021-06-02 15:20 | disposition home or self-care (01) ==
LOC: COL.ER 12:58 → MEDICAL 16:55
PROVIDERS: Personal Emergency Response Attendant; Physician Assistant; ADMIT Student in an Organized Health Care Education/Training Program
DX: R41.82 Altered mental status, unspecified (principal); R09.02 Hypoxemia; B18.2 Chronic viral hepatitis C; K70.30 Alcoholic cirrhosis of liver without ascites; D69.6 Thrombocytopenia, unspecified; E11.9 Type 2 diabetes mellitus without complications; K76.6 Portal hypertension; I81 Portal vein thrombosis; S01.511A Laceration without foreign body of lip, initial encounter; Z79.4 Long term (current) use of insulin; K55.059 Acute (reversible) ischemia of intestine, part and extent unspecified; G89.29 Other chronic pain; F43.10 Post-traumatic stress disorder, unspecified; W19.XXXA Unspecified fall, initial encounter; Y93.9 Activity, unspecified; Z87.891 Personal history of nicotine dependence
CPT/HCPCS: 99233-AI; 99238; 99239; G0378; J1815; J7030

== ENCOUNTER 2021-06-06 10:10 | Emergency (ER) | payer MEDICARE ==
[~2021-06-06] VITALS: Ht 177.8 cm; Wt 79.5 kg
[2021-06-06 10:11] VITALS: TEMP 98.2
[2021-06-06 11:25] LABS: EOS % 0.5 % (0-4.0); GRAN # 3.2 (1.4-6.5); GRAN % 73.4 % (42.2-75.2); HEMOGLOBIN 11.9 g/dl (13.5-18.0); LYMPH # 0.7 (1.2-3.4); LYMPH % 16.7 % (20.0-51.0); MEAN CELL VOLUME 94 fl (80.0-100.0); MEAN CORPUSCULAR HEMOGLOBIN 32 pg (27.0-31.0); MEAN CORPUSCULAR HGB CONC 34 g/dl (33.0-37.0); MEAN PLATELET VOLUME 10.2 fl (7.4-10.4); MONO # 0.4 (0.1-0.6); MONO % 8.9 % (1.7-9.3); PLATELET COUNT 65 K/mm3 (130-400); RED BLOOD COUNT 3.75 M/mm3 (4.20-5.60); REDCELL DISTRIBUTION WIDTH-CV 15.1 % (11.5-14.5)
[2021-06-06 11:26] LABS: HEMATOCRIT 35.4 % (42.0-52.0)
[2021-06-06 11:33] LABS: ALANINE AMINOTRANSFERASE 50 U/L (4-49); ALBUMIN 3.7 gm/dL (3.5-5.0); ALKALINE PHOSPHATASE 178 U/L (50-136); ANION GAP 2 mmol/L (7-16); AST,SGOT 54 U/L (15-37); BILIRUBIN,TOTAL 0.8 mg/dL (0.0-1.0); BLOOD UREA NITROGEN 12 mg/dL (9-20); CALCIUM 8.9 mg/dL (8.4-10.2); CARBON DIOXIDE 27 mmol/L (22-30); CHLORIDE 106 mmol/L (98-107); CREATININE, serum 0.71 (0.66-1.25); GLUCOSE 249 mg/dL (74-106); POTASSIUM 4.2 mmol/L (3.4-5.0); SODIUM 135 mmol/L (137-145); TOTAL PROTEIN 6.8 gm/dL (6.4-8.2)
[2021-06-06 11:44] LABS: C-REACTIVE PROTEIN 3.1 mg/dL (0.0-0.9)
[2021-06-06 11:46] LABS: TROPONIN-I < 0.012 ng/mL (0.000-0.035)
[2021-06-06 12:29] LABS: COLLECTION METHOD CLEAN CATCH
[2021-06-06 12:35] LABS: MUCOUS Present /lpf; PH 6 (5-8); SQUAMOUS EPITHELIAL None Seen /hpf; URINE APPEARANCE Clear; URINE BACTERIA None Seen /hpf; URINE BILIRUBIN Negative (NEGATIVE); URINE BLOOD Negative (NEGATIVE); URINE COLOR Yellow; URINE GLUCOSE 3+ (NEGATIVE); URINE KETONE Negative (NEGATIVE); URINE LEUKOCYTE ESTERASE Negative (NEGATIVE); URINE NITRATE Negative (NEGATIVE); URINE PROTEIN(semi-quant) Negative (NEGATIVE); URINE RBC 0-2 /hpf; URINE UROBILINOGEN >=4.0 mg/dL (NEGATIVE)
--- NOTE | 2021-06-06 13:40 | NUR ---
SW consulted for patient in [facility] room 10. Patient was recently in [facility] on May 25-June 02. Patient discharged without services. Pt recommendations were home. SW met with patient about care. Patient reports that he was at home and went to his see his latter-day family. Patient reports that after discharge last week he had not followed-up with primary and has been doing okay. Patient appears to not be congreunt with time. Patient reports that he notices he had not been feeling good two weeks ago and stopped driving because of it. Patient reports that he has a walker and walking stick that he will use when he is in the community. Patient reports that his PCP is Dr. Reinoso and Dr. Hahn. Patient reports that his POA is Perlita Clark Sister. Obtains medications at [facility]. SW educated patient on rehab. Patient reports that he wants to be someone where he can leave. Educated patient that he would not be able to leave rehab and come back and forth. Offered Home health, patient reports he has to think on it. Patient reports that he has not been able to urinate for a while.
[2021-06-06 15:45] LABS: TRICYCLIC ANTIDEPRESS URINE POSITIVE
[2021-06-06 16:17] VITALS: BP 125/79; PULSE 94
--- NOTE | 2021-06-06 16:34 | NUR ---
Sw talked with Nurse about DPOA process. Nurse reports that the sister called about the patients care and wants him to stay. Educated that the POA is only when the patient is unable to make decisions/verbal but not for placement without a probate judge determenining capacity or pscyh eval taking away [place].NF
== END 2021-06-06 16:17 | disposition left against medical advice (07) ==
LOC: COL.ER 10:10
PROVIDERS: Nurse Practitioner
DX: R53.83 Other fatigue (principal); R42 Dizziness and giddiness; Z91.81 History of falling

== ENCOUNTER → 2021-10-15 | Outpatient (CLI) | payer MEDICARE ==
[2021-10-15 13:47] LABS: INR 1.2 (0.8-3.0); PROTHROMBIN TIME 12.9 SECONDS (9.7-12.8)
== END ==
LOC: COL.LAB 12:55
DX: K70.30 Alcoholic cirrhosis of liver without ascites (principal); I85.00 Esophageal varices without bleeding; Z86.19 Personal history of other infectious and parasitic diseases

== ENCOUNTER → 2021-10-19 | Outpatient (CLI) | payer MEDICARE ==
[~2021-10-19] MED LIST changes: +DESYREL 50MG50 MG PO
== END ==
LOC: COL.RAD 10:05
DX: K70.30 Alcoholic cirrhosis of liver without ascites (principal); I85.00 Esophageal varices without bleeding; K80.20 Calculus of gallbladder without cholecystitis without obstruction; Z86.19 Personal history of other infectious and parasitic diseases

== ENCOUNTER 2021-10-23 07:27 | Day surgery (SDC) | payer MEDICARE ==
[~2021-10-23] VITALS: Ht 177.8 cm; Wt 103.1 kg
[~2021-10-23 07:27] MED LIST changes: -DESYREL 50MG50 MG PO
[2021-10-23] MEDS ORDERED: DESYREL 50MG50 MG PO (08:23)
[2021-10-23 08:47] VITALS: BP 119/80; PULSE 75; TEMP 97.8
[2021-10-23 13:40] VITALS: BP 98/82; PULSE 80; TEMP 97.4
--- NOTE | 2021-10-23 13:40 | NUR ---
PATIENT BROUGHT BACK TO [facility] VIA CART. AMBULATED TO CHAIR WITH ASSIST. PLACED ON MONITORS, VITAL SIGNS STABLE. STATES HE WOULD LIKE WATER AND APPLE SAUCE. DENIES PAIN OR NAUSEA. SISTER TO DRIVE PATIENT HOME. CALLED SISTER TO INFORM THAT HE IS ALL DONE. WILL REVIEW DISCHARGE INSTRUCTIONS WHEN SHE ARRIVES. REPORT RECIEVED FROM REDDY ZENDEJAS. WARM BLANKET PROVIDED, CALL [facility]DEN WITHIN REACH. WILL MONITOR. 1355- VITAL SIGNS STABLE. TOLERATING FOOD AND DRINK WITHOUT DIFFICULTY. SISTER AT BEDSIDE AT THIS TIME. 1410- PATIENT STATES HE IS READY TO GO HOME AT THIS TIME. IV REMOVED, INTACT. DISCHARGE INSTRUCTIONS REVIEWED WITH PATIENT AND SISTER. PATIENT ASSISTED IN GETTING DRESSED AT THIS TIME. 1415- PATIENT BROUGHT DOWN TO LOBBY VIA WHEEL CHAIR. ALL BELONGINGS IN HAND. TO BE DRIVEN HOME BY SISTER.
[2021-10-23 13:55] VITALS: BP 112/70; PULSE 76
[2021-10-23 14:10] VITALS: BP 120/78; PULSE 83
== END 2021-10-23 14:15 | disposition home or self-care (01) ==
LOC: SDCO 07:27
DX: I85.00 Esophageal varices without bleeding (principal); K70.30 Alcoholic cirrhosis of liver without ascites; E78.5 Hyperlipidemia, unspecified; E11.9 Type 2 diabetes mellitus without complications; G89.29 Other chronic pain; M54.9 Dorsalgia, unspecified; F41.9 Anxiety disorder, unspecified; F43.10 Post-traumatic stress disorder, unspecified; Z79.4 Long term (current) use of insulin; Z87.891 Personal history of nicotine dependence; Z79.899 Other long term (current) drug therapy
CPT/HCPCS: J2704; J7030